=== PATIENT | male | born 1995 | race Caucasian/White ===

== ENCOUNTER 2017-03-19 17:08 | Emergency (ER) | payer BC ==
[~2017-03-19] VITALS: Ht 185.4 cm; Wt 136.4 kg
[2017-03-19] MEDS ORDERED: NORCO 5/3251 TABLET PO (19:22)
[2017-03-19 19:40] VITALS: BP 119/57
== END 2017-03-19 19:41 | disposition home or self-care (01) ==
LOC: EME 17:08 → EXP 17:08
DX: S82.832A Other fracture of upper and lower end of left fibula, initial encounter for closed fracture (principal); S90.411A Abrasion, right great toe, initial encounter; W09.8XXA Fall on or from other playground equipment, initial encounter
CPT/HCPCS: 73610; 99281; 99284